=== PATIENT | male | born 1930 | race Caucasian/White ===

== ENCOUNTER 2016-08-24 12:16 | Day surgery (SDC) | payer MEDICARE ==
[2016-08-24] VITALS (9 sets, daily range): BP systolic 84–157; BP diastolic 42–90; PULSE 58–83; RESP 9–19; O2SAT 95–98
[~2016-08-24] VITALS: Ht 165.1 cm; Wt 77.8 kg
[~2016-08-24 12:16] MED LIST: ASPI-973 PO; Clindamycin Inj 900 MG in IV Premix 1 EACH IV ONE; FINA5TAB2 PO; IPRA4AER IH; NAPR220C11 PO; VERA180C4 PO
[2016-08-24] MEDS ORDERED: Phenylephrine/NS 100 mCg/mL 10 mL Syringe IVPUSH ONE (12:17)
[2016-08-24] MEDS ORDERED: fentaNYL-PF 50 mCg/mL 2 mL Inj ONE (12:17)
[2016-08-24] MEDS ORDERED: Propofol 10,000 mCg/mL 20 mL Inj ONE (12:17)
[2016-08-24] MEDS ORDERED: Ondansetron 2 mg/mL 2 mL Inj ONE (12:17)
[2016-08-24] MEDS ORDERED: Dexamethasone 4 mg/mL Inj ONE (12:17)
[2016-08-24] MEDS: Lactated Ringer's 1,000 ML IV SCH ×2 (12:28→15:08)
[2016-08-24] MEDS ORDERED: Clindamycin 900 mg/50 mL D5W Premix IV ONE (12:28)
--- NOTE | 2016-08-24 13:26 | PCM.HPANE ---
Patient Data Surgeon Admitting Provider: Attending Provider:Ira Nassar MD Primary Care Physician:Other,Physician Other Provider:Jayesh Tsai Anesthesia Reason for Visit Basal Cell Carcinoma Ht/WT & BMI Height (Feet): 5 Height (Inches): 5 Weight (Kilograms): 77.8 Body Mass Index 28.00 Allergies Coded Allergies: Cephalosporins (Verified Allergy, Severe, HIVES, 08/23/16) Sulfa (Sulfonamide Antibiotics) (Unverified Allergy, Unknown, unknown, ) diazepam (Verified Allergy, Unknown, "weirds him out", hallucinations, ) Past Anesthesia History Anesthesia History: Denies:: Anesthesia Reactions, Malignant Hyperthermia Diabetes History Hx Diabetes?: No MRSA MRSA: No Medications Blood Thinner: Aspirin Hypertension Medication: Yes (verapamil) Home Meds Incl Beta Luis: No Reported Medications Naproxen Sodium (Aleve)220 Mg [id number] Mg PO prn 12/23/14 Verapamil SR 180 Mg Cap24h.nmc813 Mg PO DAILY 12/22/14 Finasteride (Proscar)5 Mg Tablet5 Mg PO DAILY 30 Days 12/22/14 Albuterol/Ipratropium (Combivent Respimat Inhal Gabriels)120 Spr/4 Gm Inhaler1 Puff IH QID #1 INH Ref 0 12/22/14 Discontinued Reported Medications Aspirin 81 Mg Oaeoeg35 Mg PO DAILY Ref 0 08/23/16 Nitrofurantoin Macrocrystal 100 Mg [id number] Mg PO QID Ref 0 01/01/15 History History of ENT Problems?: Yes HEENT History: Positive for:: Hearing Problem Denies:: Cataracts Dysphagia Sinus Problem Denture Type: Full- Upper Full- Lower Teeth Condition: No Teeth Hx of Heart Problems?: Yes Cardiovascular History: Positive for:: Chest Pain (ED VISIT 2009 NON CARDIAC ) Coronary Artery Disease (hx mi 2008) Hypertension (hyperlipidemia) Denies:: AICD Cardiac Surgery Congestive Heart Failure Edema Heart Murmur Irregular Heartbeat Pacemaker Rheumatic Fever Thrombophlebitis Valvular Heart Disease Hx of Respiratory Problem?: Yes Respiratory History: Positive for:: COPD Cough Dyspnea Emphysema Pneumonia (HX OF) Denies:: Asthma Chest Surgery Hemoptysis Oxygen Administration Pulmonary Embolism Tuberculosis Use of C-PAP Machine Hx Neurologic Problems?: No Neurological History: Denies:: Dizziness Headaches Multiple Sclerosis Parkinson's Disease Seizures Hx of GI Problems?: Yes Other GI Pertinent History: S/P RT INGUINAL HERNIA RPR Hx of Problems?: Yes Genitourinary History: Positive for:: Kidney Stones (MULTIPLE PROSTATIC & BLADDER STONES S/P MULT. 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 (Psoriasis BASAL CELL CA UPPER BACK=CURRENT PROBLEM) Denies:: Pressure Ulcers Hx Musculoskeletal Problems?: Yes Musculoskeletal History: Positive for:: Musculoskeletal Trauma (shrapnel to back 1950"s) Denies:: Back Injury (SCOLIOSIS) Degenerative Joint Joint Replacement Systemic Lupus Hx of Psycho/Social Problems?: Yes Psycho Social History: Positive for:: Hx Depression Hx Surgeries?: Yes (TURP,TURBT,MULT. STONE EXTRACTIONS-KIDNEY/PROSTATE/BLADDER) Hx Any Other Health Problems?: Yes Other History: Positive for:: Cancer (prostate, BASAL CELL CA) Hospitalization Denies:: Endocrine Disease Thyroid Disease History Blood Transfusions: Positive for:: Blood Transfuse Reaction (was given incorrect blood) Blood Transfusions Hx Diabetes: No Hx Alcohol Use: NoHx Substance Use: No Smoking Status: Current Every Day Smoker Have You Smoked inLast 12 mo: Yes Stop/Bang Treated for Sleep Apnea?: No Do You Have a CPAP Machine?: No S-Snoring: Do You Snore Loudly: No T-Tired: feel tired, fatigued: No O-Obsered: Observed not breath: No P-Blood Pressure: treated: Yes B- Body Mass Index > 35 kg/m2: No A- Age over 50: Yes N- Neck Large Circumference: No G- Gender Male: Yes MARTY Total Score: 3 MARTY Risk Assessment: Low Risk, <3 Yes Risk Assessment Category Category 1A: Patient has history of documented sleep apnea, and HAS NOT received any narcotic, sedative or anesthesia administration during this stay. Category 1B: Patient has history of documented sleep apnea, and HAS received any narcotic , sedative or anesthesia administration during this stay Category 2: Patient has SUSPECTED Obstructive Sleep Apnea, and HAS received any narcotic , sedative or anesthesia administration during this stay. Category 3: Patient has SUSPECTED Obstructive Sleep Apnea and HAS NOT received narcotic, sedative or anesthesia administration during this stay. Category 4: Outpatient in Procedural Areas with known sleep apnea or who screen positive for High Risk via the STOP/BANG questionnaire. Exam Exam Vital Signs Vital Signs Date Time Temp Pulse Resp B/P Pulse Ox O2 Delivery O2 Flow Rate FiO2 08/24/16 12:38 36.0 78 16 154/65 98 Room Air General Appearance: Alert, Oriented X3, Cooperative, No Acute Distress HEENT/AIRWAY: MP 2 Lungs: Clear to Auscultation, Normal Air Movement Heart: Exam Unremarkable, Regular Rate/Rhythm Meds/Labs/Diagnostics Admission Meds Current Medications Lactated Ringer's (Lr) 1,000 ml @ 120 mls/hr Q8H20M IV Last administered on t 12:28; Start 08/24/16 at 05:00; Stop 08/24/16 at 13:19; Status DC Plan Impression Patient chart reviewed, patient interviewed and anesthestic plan with risks, benefits, and alternatives discussed, and informed consent obtained. NPO per Anesth. Guidelines: Yes ASA Physical Status: ASA3 Severe Disease Anesthetic Plan: GA Bene/Risks/Altern/Consents: Yes HP Complete Prior to Induction: Yes Laron Jorgensen MD August 24, 2016 13:26
[2016-08-24] MEDS ORDERED: Bupivacaine-MPF 0.5% 30 mL Inj INFILTRATE ONE (15:35)
[2016-08-24] MEDS ORDERED: Lactated Ringer's 1,000 ML IV SCH (15:44)
[2016-08-24] MEDS ORDERED: Lactated Ringer's 500 ML IV PRN (15:44)
[2016-08-24] MEDS ORDERED: fentaNYL-PF 50 mCg/mL 2 mL Inj IVPUSH PRN (15:45)
[2016-08-24] MEDS ORDERED: Labetalol 5 mg/mL 4 mL Inj IV PRN (15:45)
[2016-08-24] MEDS ORDERED: EPHEDrine Sulfate 50 mg/mL Inj IVPUSH PRN (15:45)
[2016-08-24] MEDS ORDERED: Ondansetron 2 mg/mL 2 mL Inj IVPUSH PRN (15:45)
[2016-08-24] MEDS ORDERED: Phenylephrine 10,000 mCg/mL Inj IVPUSH PRN (15:45)
[2016-08-24] MEDS ORDERED: HYDROmorphone 1 mg/mL Inj IVPUSH PRN (15:45)
[2016-08-24] MEDS ORDERED: oxyCODONE-Acetamin 5-325 mg Tablet PO PRN (16:25)
--- NOTE | 2016-08-24 17:28 | OP ---
[address] [address] OPERATIVE REPORT PATIENT: HORACIO FRAZIER : 1930 MR#: [id number] ADMIT: 08/24/2016 JOB ID: [id number] DATE OF SURGERY: 08/24/2016 SURGEON: Ira Nassar MD ASSISTANTS: Kraig Ponce PA-C, Jaswant Villalobos PA-C, and QAMAR nAn (Assistants were necessary for dissection, retraction, and wound closure). PREOPERATIVE DIAGNOSIS(ES): Basal cell carcinoma of the right upper back. POSTOPERATIVE DIAGNOSIS(ES): Basal cell carcinoma of the right upper back. PROCEDURE PERFORMED: Wide local excision of basal cell carcinoma of the right upper back. The size of the specimen at the time of excision is 15 x 8 cm. HISTORY OF PRESENT ILLNESS: This is an 85-year-old man who had progressively enlarging, pink, fungating lesion on the upper aspect of his right back. Shave biopsy was performed at the [facility] in [place]. It revealed a basal cell carcinoma. Due to the size of the lesion, wide local excision in the operating room was indicated. FINDINGS: The lesion was at the level of the tip of the scapula, 5 cm to the right of the spine, and was 4 cm x 4 cm in size at the time of preoperative evaluation in clinic. An elliptical incision was made and the final specimen was 15 x 8 cm. DESCRIPTION OF PROCEDURE: The patient was brought to the operating room and placed in supine position. General anesthesia was induced. SCDs were placed and he was flipped prone. The operative field was prepped and draped in sterile fashion. A pause was performed to confirm the correct patient, procedure, and site. An elliptical incision had been drawn preoperatively along skin lines to provide an adequate wide margin, 1-2 cm wider than the lesion itself which preoperatively had measured 4 x 4 cm in size. The superomedial aspect of the ellipse was located just to the right of the spine at the level of T2 and the inferolateral tip of the ellipse was at the level of T5 near the tip of the scapula. An elliptical excision was made around the lesion with a knife and electrocautery was used for hemostasis. The entire skin of the ellipse as well as underlying adipose tissue was removed. The wound was closed primarily with multiple interrupted 3-0 Vicryl deep dermal stitches followed by a running 4-0 subcuticular Monocryl stitch. Dermabond was placed. The patient was awakened from general anesthesia and taken to the postoperative care unit in good condition. ESTIMATED BLOOD LOSS: 20 mL. SPECIMENS: Right back skin wide local excision, stitches marked with a short stitch superior and long stitch lateral, sent for permanent specimen. COMPLICATIONS: None. MTDD
--- NOTE | 2016-08-26 14:05 | PATH ---
SURGICAL PATHOLOGY Attending Physician:Ira Nassar MD CASE STATUS: Signed Out PATIENT NAME: HORACIO FRAZIER PID: [id number] : 1930 DATE COLLECTED:08/24/2016 00:00 SPECIMEN: Skin, biopsy CLINICAL HISTORY: BASAL CELL CARCINOMA 1). RIGHT BACK SKIN, 15 X 8 SHORT SUPERIOR, LONG LATERAL FINAL DIAGNOSIS: 1.EXCISIONAL SPECIMEN, RIGHT SIDE OF BACK, MEASURING 15 X 8 CM: BASAL CELL CARCINOMA, NODULAR TYPE INVADING INTO THE DEEP DERMIS IN SEVERAL AREAS. NEGATIVE FOR INVASION OF SUBCUTANEOUS FAT. TUMOR SIZE: 3.5 X 3.3 CM WITH MAXIMUM THICKNESS MEASURED AT 0.25 CM. PROMINENT SURFACE ULCERATION. EXCISIONAL MARGINS WIDELY FREE OF TUMOR. ICD10 C44.519 GROSS DESCRIPTION: The specimen is received in formalin, labeled with the patient's name, sublabeled as right back skin, 15 x 8 and consists of an ellipse of skin with subcutaneous tissue (1.4 cm AP, 5.4 cm SI, 14.2 cm ML). The specimen is oriented with 2 black sutures (short-superior, long-lateral). The skin is tobias-pink smooth and shiny and contains an irregular raised pearly white lesion (3.5 x 3.3 x 0.3 cm) with focal ulcerations. The lesion is 1.0 cm from the superior, 0.9 cm from the inferior, 4.6 cm from the medial, and 6.3 cm from the lateral resection margins. The subcutaneous tissue is fatty and unremarkable. No other nodules, masses, or lesions are identified. Ink code: purple-anterior; black-superior; orange-inferior; green-medial; blue-lateral. Section code: (A-B) tissue adjacent to lesion, bisected and submitted SI; (C-Z) ellipse of skin, serially sectioned ML into 12 slices, each slice is bisected and submitted SI; (AA-BB) tissue adjacent to lesion, bisected and submitted SI. Lesion entirely submitted. Note: This case has been reviewed by Dr. Jaquan Dominguez. 08/25/16 JM MICRO DESCRIPTION: See diagnosis. ICD-9 CODES: CPT CODES: 1: 15137 Electronically Signed Out Alex Lara MD [facility] [address], [place] [address] Technical component performed at [facility], [address], [place], [address]
== END 2016-08-24 23:59 | disposition home or self-care (01) ==
LOC: SAS 12:16
PROVIDERS: ATTEND Surgery
DX: C44.519 Basal cell carcinoma of skin of other part of trunk (principal); J44.9 Chronic obstructive pulmonary disease, unspecified; I73.9 Peripheral vascular disease, unspecified; F32.9 Major depressive disorder, single episode, unspecified; E78.5 Hyperlipidemia, unspecified; I10 Essential (primary) hypertension; I25.2 Old myocardial infarction; K50.90 Crohn's disease, unspecified, without complications; F17.210 Nicotine dependence, cigarettes, uncomplicated; Z85.46 Personal history of malignant neoplasm of prostate; Z92.3 Personal history of irradiation; Z79.82 Long term (current) use of aspirin; Z79.51 Long term (current) use of inhaled steroids
CPT/HCPCS: 11606; J1100; J2370; J2405; J3010; J7120